=== PATIENT | female | born 1965 | race African-American/Black ===

== ENCOUNTER 2019-07-10 13:21 | Inpatient (IN) ==
[2019-07-10 16:03] LABS: BILIRUBIN URINE NEGATIVE (NEGATIVE); BLOOD URINE 1+ (NEGATIVE); CLARITY CLEAR (CLEAR); COLOR YELLOW; GLUCOSE URINE NEGATIVE (NEGATIVE); KETONE URINE TRACE mg/dL (NEGATIVE); LEUKOCYTES URINE TRACE (NEGATIVE); NITRITE URINE NEGATIVE (NEGATIVE); PROTEIN URINE NEGATIVE (NEGATIVE); UROBILINOGEN URINE NORMAL
[2019-07-10 16:10] LABS: URINE BACTERIA 3+ /HFP; URINE EPITHELIAL CELLS >10 /HPF (<10); URINE RBC <10 /HPF (<10); URINE SOURCE CLEAN CATCH; URINE WBC <10 /HPF (<10)
[2019-07-10 16:14] LABS: AGAP 10; ALBUMIN 4.4 g/dL (3.5-5.0); ALKALINE PHOSPHATASE 49 U/L (32-104); BUN 7 mg/dL (8-22); CALCIUM 9.5 mg/dL (8.8-10.2); CHLORIDE 104 mmol/L (98-107); COSMO 278; CREATININE 0.3 mg/dL (0.5-0.9); ESTIMATED GFR > 60; GLUCOSE 105 mg/dL (70-104); GOT 26 U/L (10-30); GPT 20 U/L (10-36); POTASSIUM 3.7 mmol/L (3.5-5.1); SODIUM 140 mmol/L (136-145); TCO2 26 mmol/L (25-35); TOTAL PROTEIN 7.8 g/dL (6.3-8.3)
[2019-07-10 16:27] LABS: BASO# 0.01 X1000 (0.0-0.2); BASO% 0.2 % (0.0-0.8); EOS# 0.04 X1000 (0.0-0.7); EOS% 0.8 % (0.0-10.0); HEMATOCRIT 37.6 % (37.0-47.0); HEMOGLOBIN 11.9 g/dL (12.0-16.0); IMM GRAN# 0.01 X1000 (0.0-0.04); IMM GRAN% 0.2 % (0.0-0.5); LYMPH# 3.17 X1000 (1.2-3.4); LYMPH% 65.2 % (20.5-51.1); MCH 26.5 PG (27-31); MCHC 31.6 g/dL (33-37); MCV 83.7 FL (81-99); MONO# 0.39 X1000 (0.11-0.59); NEUT# 1.24 X1000 (1.4-6.5); NEUT% 25.6 % (42.2-75.2); RBC 4.49 XMIL (4.2-5.4); RDW 15.7 % (11.5-14.5); WBC 4.86 X1000 (4.8-10.8)
[2019-07-10 16:29] LABS: PLT 7 X1000 (130-400)
[2019-07-10 16:36] LABS: INR 0.99; PROTIME 13.6 Seconds (11.0-16.0)
[2019-07-10 16:41] LABS: LYMPHS 60 % (21-51); MONO 4 % (1-9); SEGS 36 % (42-75)
[2019-07-10 16:44] LABS: ANISOCYTOSIS 1+; HYPOCHROM 2+; MICROCYTOSIS 1+; OVALOCYTES 2+; POIKILOCYTOSIS 2+
--- NOTE | 2019-07-10 17:09 | PROVIDER DOCUMENTATION ---
This chart was entered by Ruth Mathias Scribe, acting as scribe for Patricia Connolly MD. HPI-Female /OB/Breast - General Chief Complaint: Female Stated Complaint: BLOOD IN URINE Time Seen by Provider: 07/10/19 13:47 Source: reports: patient Allergies/Adverse Reactions: Patient Allergies Allergy/AdvReac Type Severity Reaction Status Date / Time No Known Allergies Allergy Verified 07/10/19 13:29 Home Medications: Home Medication List Medication Instructions Recorded Confirmed Last Taken Type Levothyroxine Sodium 50 mcg PO DAILY 06/24/17 07/10/19 07/10/19 10:00 History Lisinopril 30 mg PO DAILY 06/24/17 07/10/19 07/10/19 10:00 History Citalopram [Celexa] 20 mg PO DAILY 10/09/18 07/10/19 07/10/19 10:00 History Ondansetron HCl [Zofran] 4 mg PO Q4H PRN PRN #20 tab 11/13/18 07/10/19 Unknown Rx Hydroxyzine Pamoate [Vistaril] 25 mg PO Q4-6H PRN PRN #20 cap 12/12/18 07/10/19 07/10/19 10:00 Rx - History of Present Illness-Female /OB Nature of Presenting Problem: Patient is a 53 year old female who presents with lower abdominal pain. States hematuria, nausea, and chills with abdominal pain. Reports symptoms have been present for 2 days. States she was informed recently her platelet count is 36. Does patient report she is ?: No Location of complaint: reports: other (generalized lower) Radiation: reports: none Quality of Pain: reports: cramping Severity in ED: reports: mild Onset/Duration: reports: 2 days ago Timing: reports: still present Context/Activities at Onset: reports: light activity Urinary Symptoms: reports: hematuria Modifying Factors: improves with: nothing Associated Symptoms: reports: fever/chills (chills), nausea Similar Symptoms Previously?: Yes Recently seen or treated by another doctor?: Yes Review of Systems - Adult - REVIEW OF SYSTEMS - ADULT Constitutional: reports: see HPI, chills. denies: fever, fatique Eyes: reports: no symptoms reported Ears, Nose, Mouth & Throat: reports: no symptoms reported Cardiovascular: reports: no symptoms reported Respiratory: reports: no symptoms reported Gastrointestinal: reports: see HPI, abdominal pain (generalized lower), nausea. denies: diarrhea, vomiting Genitourinary: reports: see HPI, hematuria. denies: dysuria, flank pain Musculoskeletal: reports: no symptoms reported Integumentary: reports: no symptoms reported Neurological: reports: no symptoms reported Psychiatric: reports: no symptoms reported Endocrine: reports: no symptoms reported Hematologic/Lymphatic: reports: no symptoms reported Allergic/Immunologic: reports: no symptoms reported All Other Systems: Reviewed and Negative Past History - Adult - PAST MEDICAL HISTORY-ADULT Review of Records: reports: Old Records Reviewed, Social history reviewed & non- contributory. Major Childhood Illnesses: reports: denies history Cardiovascular: reports: HTN, hyperlipidemia Respiratory: reports: denies history Gastrointestinal: reports: denies history Obstetrical/Gynecological: reports: denies history Genitourinary: reports: denies history Musculoskeletal: reports: denies history Neurological: reports: Seizures/Epilepsy Psychiatric: reports: anxiety, depression Endocrine/Immune: reports: thyroid disorder Other Conditions: reports: denies history - PRIOR SURGERIES/PROCEDURES Surgical/Procedure History: reports: - IMMUNIZATION STATUS Childhood Immunizations: See Nurse Assessment Flu Vaccine: See Nurse Assessment - FAMILY HISTORY Family History: reviewed, not pertinent - SOCIAL HISTORY Smoking: cigarettes (former) Substance Use: denies Living Situation: family Physical Exam-General - PHYSICAL EXAM-ADULT Initial Vital Signs Reviewed: Yes - CONSTITUTIONAL General Appearance: alert, no apparent distress. negative: lethargic - HEAD, EARS, NOSE, MOUTH & THROAT HENMT: normocephalic/atraumatic, moist mucous membranes. negative: angioedema - RESPIRATORY Respiratory: chest non-tender, lungs clear, normal breath sounds. negative: crackles, rhonchi - CARDIOVASCULAR Cardiovascular: normal peripheral pulses, regular rate, rhythm. negative: tachycardia - GASTROINTESTINAL (ABDOMEN) Abdominal Exam: normal bowel sounds, soft, tenderness (suprapubic, LLQ and RLQ). negative: guarding, rigid - MUSCULOSKELETAL Extremity: non-tender, normal inspection. negative: deformity, erythema - SKIN Integumentary: normal color, normal turgor, warm/dry. negative: cyanosis, erythema, rash - NEUROLOGIC Neurologic: grossly normal. negative: aphasia, facial droop - PSYCHIATRIC Psych/Mental Status: normal mood/affect, oriented x 3. negative: anxious Progress - PLAN OF CARE/RESULTS Progress/Plan/Lab Results: Vital Signs - 8 hr 07/10/19 13:27 Temperature 98.0 F Pulse Rate 81 Respiratory Rate 18 Blood Pressure 127/78 O2 Sat by Pulse Oximetry 99 Laboratory Results - last 24 hr 07/10/19 07/10/19 07/10/19 15:35 15:50 15:50 WBC 4.86 RBC 4.49 Hgb 11.9 L Hct 37.6 MCV 83.7 MCH 26.5 L MCHC 31.6 L RDW Std Deviation 15.7 H Plt Count 7 L* MPV Not Reportable Immature Gran % (Auto) 0.2 Neut % (Auto) 25.6 L Lymph % (Auto) 65.2 H Maury % (Auto) 8.0 Eos % (Auto) 0.8 Baso % (Auto) 0.2 Immature Gran # (Auto) 0.01 Neut # (Auto) 1.24 L Lymph # (Auto) 3.17 Maury # (Auto) 0.39 Eos # (Auto) 0.04 Baso # (Auto) 0.01 Segmented Neutrophils 36 L Lymphocytes 60 H Monocytes 4 Hypochromia 2+ Large Platelets S[employer] Poikilocytosis 2+ Anisocytosis 1+ Microcytosis 1+ Ovalocytes 2+ PT INR PTT (Actin FS) Sodium 140 Potassium 3.7 Chloride 104 Carbon Dioxide 26 Anion Gap 10 BUN 7 L Creatinine 0.3 L Estimated GFR/1.73 m2 > 60 BUN/Creatinine Ratio 23 Glucose 105 H Calculated Osmolality 278 Calcium 9.5 Total Bilirubin 0.40 AST 26 ALT 20 Alkaline Phosphatase 49 Total Protein 7.8 Albumin 4.4 Globulin 3.0 Albumin/Globulin Ratio 1.0 Urine Source CLEAN CATCH Urine Color YELLOW Urine Clarity CLEAR Urine pH 5.0 Ur Specific Dalton 1.020 Urine Protein NEGATIVE Urine Ketones TRACE Urine Blood 1+ A Urine Nitrite NEGATIVE Urine Bilirubin NEGATIVE Urine Urobilinogen NORMAL Urine Microscopic RBC <10 Urine WBC TRACE A Urine Microscopic WBC <10 Ur Epithelial Cells >10 A Urine Bacteria 3+ Urine Glucose NEGATIVE 07/10/19 15:50 WBC RBC Hgb Hct MCV MCH MCHC RDW Std Deviation Plt Count MPV Immature Gran % (Auto) Neut % (Auto) Lymph % (Auto) Maury % (Auto) Eos % (Auto) Baso % (Auto) Immature Gran # (Auto) Neut # (Auto) Lymph # (Auto) Maury # (Auto) Eos # (Auto) Baso # (Auto) Segmented Neutrophils Lymphocytes Monocytes Hypochromia Large Platelets Poikilocytosis Anisocytosis Microcytosis Ovalocytes PT 13.6 INR 0.99 PTT (Actin FS) 26.0 Sodium Potassium Chloride Carbon Dioxide Anion Gap BUN Creatinine Estimated GFR/1.73 m2 BUN/Creatinine Ratio Glucose Calculated Osmolality Calcium Total Bilirubin AST ALT Alkaline Phosphatase Total Protein Albumin Globulin Albumin/Globulin Ratio Urine Source Urine Color Urine Clarity Urine pH Ur Specific Dalton Urine Protein Urine Ketones Urine Blood Urine Nitrite Urine Bilirubin Urine Urobilinogen Urine Microscopic RBC Urine WBC Urine Microscopic WBC Ur Epithelial Cells Urine Bacteria Urine Glucose Orders Category Date Time Status CT ABD/PELVIS W/IV CONT ONLY [CT] Stat Exams 07/10/19 13:48 Ordered CBC WITH ELECTRONIC DIFF [HEME] Stat Lab 07/10/19 15:50 Completed CMP [COMPREHENSIVE METABOLIC PANEL] [CHEM] Stat Lab 07/10/19 15:50 Completed PHERESIS PLATELETS [BBK] Stat Lab 07/10/19 15:50 Received PROTIME WITH INR [COAG] Stat Lab 07/10/19 15:50 Completed PTT [COAG] Stat Lab 07/10/19 15:50 Completed TYPE & SCREEN [BBK] Stat Lab 07/10/19 15:50 Received UA NIMS W/REFLEX CULT PL [URINALYSIS] Stat Lab 07/10/19 15:35 Completed URINE CULTURE [RM] Routine Lab 07/10/19 15:35 Received d/w Dr King, He will place the orders for platelet transfusion Result Diagrams: 07/10/19 15:50 07/10/19 15:50 - CONSULTS/PCP/HOSPITALIST Notification #1 *Consult/PCP/Hospitalist*: Dr King Time Discussed: 17:02 Consult Disposition: Will see in ED Departure - Departure Date of Disposition Decision: 07/10/19 Time of Disposition Decision: 17:06 DIAGNOSIS: Thrombocytopenia, Abdominal pain, Hematuria Disposition: ADMITTED INPATIENT 09 Certified Medical Emergency: Emergent Condition: Good Referrals and Follow-Ups: None,PCP [Primary Care Provider] - - Critical Care Note This patient required my direct & personal management of CC.: Yes Total Time (mins): 40 Critical Care Statement: This patient required my direct personal management to treat or rule out processes, the absence of which, could potentiallly result in sudden, clinically significant life or limb threatening deterioration. Attestation - Physician/ MUNA Attestation Patient care was provided by Advanced Practice Provider:: No The physician spent face to face time with patient:: Yes Advanced Practice Provider documentation review:: Supervising physician onsite and consulted in the evaluation and care of this patient. The physician did have a face to face encounter with the patient. This chart was documented by the indicated scribe, (Ruth Mathias Scribe) and accurately reflects the services I performed and decisions made by me, Patricia Connolly MD, as attested by the provider's signature.
[2019-07-10] MEDS ORDERED: TYLENOL PO PRN (18:30)
[2019-07-10] MEDS ORDERED: ZOFRAN IV PRN (18:30)
[2019-07-10] MEDS ORDERED: NS 500 ML IV ONE (18:31)
--- NOTE | 2019-07-10 19:04 | Diag Imaging Result Doc PS360 ---
EXAM: CT ABD/PELVIS W/IV CONT ONLY 07/10/2019 HISTORY: hematuria, abd pain 3 weeks TECHNIQUE: This exam was performed using automated exposure control, adjustment of mA or kV according to patient size, and/or use of iterative reconstruction technique. COMMENT: There are no previous studies available for comparison. There is no evidence of acute disease in the visualized portion of the chest. There is a heterogeneous but somewhat well-circumscribed lucent lesion posteriorly in the right hepatic lobe. Some peripheral enhancement probably nodes present suggesting that this is a cavernous hemangioma. The adrenal glands are not enlarged. The spleen and pancreas are within normal limits. There is no apparent cholelithiasis. The kidneys are without evidence of hydronephrosis or mass. There is no evidence of appendicitis. There is a vena cava filter. There is no evidence of bowel obstruction. There is retained gastric contents. Pelvis: There are calcified myometrial masses consistent with leiomyomata. There are some small ovarian cysts on the right the largest of which measures 13 mm in diameter. There is no evidence of free fluid. The urinary bladder is not distended. There is no evidence of significant adenopathy. There is a bone island in the left iliac bone just above the acetabulum. There are degenerative changes with vacuum phenomenon in the sacroiliac joint and facet arthropathy is seen bilaterally at L5-S1. No acute bony abnormalities are present. IMPRESSION: Probable hepatic hemangioma. Multiphase scanning is suggested for further evaluation if clinically indicated. Electronically signed by Benjie Moore 07/10/2019 7:02 PM
--- NOTE | 2019-07-10 21:45 | HISTORY AND PHYSICAL ---
CHIEF COMPLAINT: Bloody urine. HISTORY OF PRESENT ILLNESS: The patient is a 53-year-old female who presented to the hospital with blood in her urine. After discussion, she has also had blood on her toothbrush for the past several days after brushing her teeth. Denies any bleeding otherwise. Denies any chadwick bruising. The patient does have a history of thrombocytopenia. She was actually admitted to the hospital in March of 2018 with a platelet count of 6. It dropped to 2. She was transferred to [facility], where she stayed 7 days and was given transfusions. She denies any knowledge of the diagnosis. She was seen back in September as well as in March of this year with platelets in the 50 range. Currently her platelets are at 7. ALLERGIES: No known drug allergies. MEDICATIONS: Synthroid 50, lisinopril 30, Celexa 20, Vistaril 25. PAST MEDICAL HISTORY: Hypertension, hypothyroidism, depression. She has moderate spinal stenosis at L4-L5. SURGICAL HISTORY: She has had a . FAMILY HISTORY: Noncontributory. She denies any family history of thrombocytopenia. SOCIAL HISTORY: She lives at home. Does not smoke or drink. Denies any illicit substances. She does not have a primary care physician. I am unclear as to where she stated medication prescriptions are being written from. REVIEW OF SYSTEMS: As noted above. She does note that she has blood in her urine. She has had blood when she is brushing her teeth. Denies any blood in her stool. Denies any bleeding or bruising otherwise. Denies headaches, blurred vision, change in her vision. She has had frequent falls, but this is chronic. Denies any recent fractures. Denies any headaches, blurred vision, or change in her vision. She does have some abdominal pain. Denies constipation, melena, hematochezia. PHYSICAL EXAMINATION: VITAL SIGNS: Reviewed. She is currently afebrile. Blood pressure is stable, 130 systolic. Respiratory rate is 22. GENERAL: Patient is awake, alert. She is in no respiratory distress currently. HEENT: Normocephalic. NECK: Supple. CARDIOVASCULAR: Regular rate. CHEST: Clear. ABDOMEN: Soft, tender in the suprapubic left lower quadrant area. No guarding. No rebound. Positive bowel sounds. EXTREMITIES: Moves all extremities. No bruising. NEUROLOGIC: She is awake, alert, and oriented x3. ASSESSMENT: 1. Severe thrombocytopenia with a platelet count of 7. 2. Mild anemia. Hemoglobin and hematocrit 11.9, and 37. 3. Hypertension. 4. Hypothyroidism. 5. Chronic anxiety and depression. 6. Spinal stenosis, lumbar. PLAN: We are going to transfuse platelets. We will transfer her to [facility] for a hematology opinion. CT was reported to me is negative. I do not have radiology reports currently. cc: Tyler King MD
[2019-07-11 07:45] LABS: HEMATOCRIT 34.7 % (37.0-47.0); HEMOGLOBIN 10.9 g/dL (12.0-16.0); MCH 27.2 PG (27-31); MCHC 31.4 g/dL (33-37); MCV 86.5 FL (81-99); PLT 71 X1000 (130-400); RBC 4.01 XMIL (4.2-5.4); RDW 16.1 % (11.5-14.5); WBC 4.24 X1000 (4.8-10.8)
[2019-07-11 07:58] LABS: AGAP 11; ALB/GLOB RATIO 1.3; ALBUMIN 3.8 g/dL (3.5-5.0); ALKALINE PHOSPHATASE 47 U/L (32-104); BUN 9 mg/dL (8-22); CALCIUM 8.9 mg/dL (8.8-10.2); CHLORIDE 108 mmol/L (98-107); COSMO 285; CREATININE 0.3 mg/dL (0.5-0.9); ESTIMATED GFR > 60; GLUCOSE 92 mg/dL (70-104); GOT 25 U/L (10-30); GPT 18 U/L (10-36); SODIUM 144 mmol/L (136-145); TCO2 25 mmol/L (25-35); TOTAL BILIRUBIN 0.41 mg/dL (0.20-1.00); TOTAL PROTEIN 6.8 g/dL (6.3-8.3)
[2019-07-11] MEDS: CELEXA PO SCH (08:20)
[2019-07-11] MEDS: SYNTHROID PO SCH (08:20)
[2019-07-11] MEDS: COLACE PO SCH (11:50)
[2019-07-11] MEDS: DECADRON PO SCH (12:24)
--- NOTE | 2019-07-11 12:26 | HEMO/ONC CONSULTATION ---
DATE: 07/11/2019 REASON FOR CONSULTATION: This is a known patient of ours for the management of idiopathic thrombocytopenia purpura. HISTORY OF PRESENT ILLNESS: This is a 53-year-old female patient who presented to the ER with blood in her urine. She also describes blood on her toothbrush for the past several days after brushing her teeth. She denies bleeding anywhere else, and she denies any easy bruising, ecchymosis, or petechiae. The patient became a patient of ours last year after hospitalization for thrombocytopenia. We initially met this patient last April after being treated in [facility] for severe ITP. She was given transfusions at that time. In the clinic, she was given 1 cycle of Decadron with omeprazole, which brought her platelet count to 128,000. She did not return to the clinic for several months, until October of this year, and her platelet count was 111,000. She has again, not shown up in the clinic since then. She has been noncompliant with followup. In January, we were notified that the patient was living at the [facility]. The patients's PCP called stating the patient's platelet's were 35,000. She was scheduled for an appointment next week. The patient also has an LIZETH and SSA antibody positive, and was referred to Rheumatology. We are not sure if she followed up with those appointments. PAST MEDICAL HISTORY: Hypertension, hypothyroidism, depression, ITP, moderate spinal stenosis at L4, L5. PAST SURGICAL HISTORY: She has had a section. ALLERGIES: No known drug allergies. HOME MEDICATIONS: Synthroid, lisinopril, Celexa, and Restoril. SOCIAL HISTORY: She denies smoking, alcohol, or illicit drug use. FAMILY HISTORY: Denies history of thrombocytopenia, otherwise noncontributory. REVIEW OF SYSTEMS: Pertinent positives are noted in the HPI. Otherwise review of systems is negative. PHYSICAL EXAMINATION: Vital Signs: Temperature 98.5 degrees, pulse rate 75, respiratory rate 18, blood pressure 135/89, O2 saturation 100% on room air, she is in 0/10 pain. General: The patient is in no acute distress. HEENT: Sclerae anicteric. PERRLA. Oral mucosa is moist. Cardiovascular: Normal S1, S2. Heart rate and rhythm regular. Chest: Clear to auscultation. Abdomen: Soft, nondistended, tender in the left lower quadrant. Positive bowel sounds. Extremities: No ecchymosis or bruising noted. They appear atraumatic. Neurological: Awake, alert, and oriented. LABORATORY DATA: WBC 4.24, hemoglobin 10.9, hematocrit 34.7, platelet count yesterday 7000, today 71,000. ASSESSMENT: 1. Idiopathic thrombocytopenia purpura. 2. Normocytic anemia. PLAN: The patient is status post two platelet transfusions. Dr. Griffiths would like the patient started on Decadron 40 mg daily x4 days, along with Prilosec for treatment. Continue to transfuse the patient with platelets as needed for platelet count less than 20,000. We will continue to monitor closely. Dictated by CHRIS Roberson for Wei Griffiths MD cc: Wei Griffiths MD [facility]
--- NOTE | 2019-07-11 15:08 | PROGRESS NOTE ---
DATE: 07/11/2019 SUBJECTIVE: The patient is resting comfortably in bed. She received 2 units of platelets yesterday, and her platelet count is improved. OBJECTIVE: Vital Signs: Temperature 97.9 degrees, blood pressure 130/78, heart rate 75, respirations 18, and O2 saturation 94% on room air. General: This is a morbidly obese female lying in bed in no acute distress. Heart: S1, S2 normal. Regular rate and rhythm. Lungs: Equal air entry bilaterally. No wheezing. No rales. Abdomen: Positive bowel sounds. Soft, nontender, and nondistended. Extremities: No edema. No cyanosis. Neurologic: The patient is alert and oriented x3. LABORATORY: Platelet count 71,000, hemoglobin 10, hematocrit 34, platelets 133,000, and white blood cell count 4.3. ASSESSMENT AND PLAN: 1. ITP. The patient has been started on steroid therapy by Dr. Griffiths. We will monitor the platelet count closely. 2. Hypothyroidism. Continue on Synthroid. 3. Obesity. Aware. cc: Annette Donovan MD MTDD
[2019-07-12] MEDS: PRILOSEC PO SCH (05:59)
[2019-07-12] MEDS: SYNTHROID PO SCH (05:59)
[2019-07-12 08:20] LABS: AGAP 13; BUN 14 mg/dL (8-22); CALCIUM 9.3 mg/dL (8.8-10.2); CHLORIDE 105 mmol/L (98-107); COSMO 279; CREATININE 0.3 mg/dL (0.5-0.9); ESTIMATED GFR > 60; GLUCOSE 150 mg/dL (70-104); POTASSIUM 3.8 mmol/L (3.5-5.1); SODIUM 138 mmol/L (136-145); TCO2 20 mmol/L (25-35)
[2019-07-12 08:46] LABS: LYMPH# 1.79 X1000 (1.2-3.4); LYMPH% 51.9 % (20.5-51.1); MONO# 0.09 X1000 (0.11-0.59); MONO% 2.6 % (1.7-9.3); NEUT# 1.57 X1000 (1.4-6.5); NEUT% 45.5 % (42.2-75.2)
[2019-07-12 08:47] LABS: HEMATOCRIT 34.7 % (37.0-47.0); HEMOGLOBIN 11.1 g/dL (12.0-16.0); MCH 26.4 PG (27-31); MCV 82.6 FL (81-99); RDW 15.6 % (11.5-14.5); WBC 3.45 X1000 (4.8-10.8)
[2019-07-12] MEDS: CELEXA PO SCH (08:48)
[2019-07-12] MEDS: COLACE PO SCH (08:48)
[2019-07-12 08:51] LABS: PLT 36 X1000 (130-400)
[2019-07-12] MEDS: ROCEPHIN 1 GM in NS 50 ML IV SCH (09:02)
[2019-07-12 09:04] LABS: LYMPHS 54 % (21-51); SEGS 46 % (42-75)
[2019-07-12] MEDS: DECADRON PO SCH (12:20)
--- NOTE | 2019-07-12 15:09 | PROGRESS NOTE ---
DATE: 07/12/2019 SUBJECTIVE: The patient is resting comfortably in bed. She has no complaints at this time. OBJECTIVE: Vital Signs: Temperature 97.8 degrees, blood pressure 134/80, heart rate 84, respirations 18, O2 saturations 100% on room air. General: This is an elderly female, lying in bed in no acute distress. Heart: S1, S2 normal. Regular rate and rhythm. Lungs: Clear to auscultation bilaterally. No wheezing. No rales. No rhonchi. Abdomen: Positive bowel sounds. Soft, nontender, nondistended. Extremities: No edema. No cyanosis. Neurologic: The patient is alert and oriented x4. LABORATORY DATA: White blood cell count 3.4, hemoglobin 11, hematocrit 34, platelets 36,000. BUN 14, creatinine 0.3. Urine culture shows Escherichia coli. ASSESSMENT AND PLAN: 1. Idiopathic thrombocytopenic purpura. The patient is currently on steroid therapy. Will continue to monitor the platelet count closely for improvement. Further management as per Dr. Griffiths. 2. Urinary tract infection secondary to Escherichia coli. The patient is on Rocephin. 3. Obesity. The patient has been counseled about weight loss. 4. Anemia. Stable. cc: Annette Donovan MD MTDD
--- NOTE | 2019-07-12 16:42 | HEMO/ONC PROGRESS NOTE ---
DATE: 07/12/2019 SUBJECTIVE: The patient is sitting up this morning, eating breakfast. She states that she does have a good appetite. She is feeling well. She states there is a slight amount of blood still in her urine, but her gums are not bleeding anymore. She has no complaints today. OBJECTIVE: Vital signs: Temperature 97.6 degrees, pulse rate 76, respiratory rate 18, blood pressure 142/92, O2 saturation 100% on room air. She is in 0/10 pain. General: The patient is in no acute distress. HEENT: Sclera is anicteric. PERRLA. Oral mucosa is moist. Cardiovascular: Normal S1, S2. Heart rate and rhythm are regular. Respiratory: Chest is clearn to auscultation. Normal respiratory effort. Abdomen: Soft, nondistended, nontender. Positive bowel sounds. Extremities: No ecchymosis or bruising noted. They appear atraumatic. No edema noted. Neurological: Awake, alert, oriented x3. LABORATORY: WBC 3.45, hemoglobin 11.1, hematocrit 34.7, and platelet count 36,000. ASSESSMENT: 1. Idiopathic thrombocytopenia purpura. 2. Normocytic anemia. PLAN: The patient should continue on day 2 of 4 days of Decadron 40 mg daily along with Prilosec. Continue transfusion for a platelet count less than 20,000 or bleeding. We will continue to monitor her closely. Dictated by CHRIS Roberson for Wei Griffiths MD cc: Wei Griffiths MD [facility]
[2019-07-13] MEDS: SYNTHROID PO SCH (06:34)
[2019-07-13] MEDS: PRILOSEC PO SCH (06:34)
[2019-07-13] MEDS: ROCEPHIN 1 GM in NS 50 ML IV SCH (06:34)
[2019-07-13 07:36] LABS: HEMATOCRIT 32.7 % (37.0-47.0); HEMOGLOBIN 10.8 g/dL (12.0-16.0); LYMPH# 2.02 X1000 (1.2-3.4); LYMPH% 44.7 % (20.5-51.1); MCH 27.3 PG (27-31); MCV 82.8 FL (81-99); MONO# 0.16 X1000 (0.11-0.59); MONO% 3.5 % (1.7-9.3); NEUT# 2.34 X1000 (1.4-6.5); NEUT% 51.8 % (42.2-75.2); PLT 18 X1000 (130-400); RBC 3.95 XMIL (4.2-5.4); RDW 15.6 % (11.5-14.5); WBC 4.52 X1000 (4.8-10.8)
[2019-07-13 07:51] LABS: AGAP 15; BUN 13 mg/dL (8-22); CALCIUM 9.4 mg/dL (8.8-10.2); CHLORIDE 104 mmol/L (98-107); COSMO 282; CREATININE 0.3 mg/dL (0.5-0.9); ESTIMATED GFR > 60; GLUCOSE 138 mg/dL (70-104); POTASSIUM 4.2 mmol/L (3.5-5.1); SODIUM 140 mmol/L (136-145); TCO2 21 mmol/L (25-35)
[2019-07-13] MEDS ORDERED: TYLENOL PO ONE (07:59)
[2019-07-13] MEDS ORDERED: BENADRYL PO ONE (07:59)
[2019-07-13] MEDS ORDERED: IVIG DOSING ORDER MISC SCH ×2 (08:00→08:16)
[2019-07-13 08:41] LABS: ANISOCYTOSIS 1+; LYMPHS 46 % (21-51); MONO 2 % (1-9); SEGS 51 % (42-75)
[2019-07-13 08:42] LABS: LARGE PLATELETS OCCASIONAL; MICROCYTOSIS 1+
[2019-07-13] MEDS ORDERED: GAMUNEX C IV ONE (09:00)
[2019-07-13] MEDS ORDERED: DILUENT IV ONE (09:00)
[2019-07-13] MEDS: DECADRON PO SCH (10:21)
[2019-07-13] MEDS: CELEXA PO SCH (10:21)
[2019-07-13] MEDS: COLACE PO SCH (10:22)
[2019-07-13] MEDS ORDERED: NS 250 ML ONE (11:07)
--- NOTE | 2019-07-13 15:12 | PROGRESS NOTE ---
DATE: 07/13/2019 SUBJECTIVE: The patient states that she feels weak this morning. Also, her platelet count has dropped again today. OBJECTIVE: Vital Signs: Temperature 97.5 degrees, blood pressure 160/84, heart rate 65, respirations 19, O2 saturations 100% on room air. General: This is an overweight female lying in bed in no acute distress. Heart: S1, S2 normal. Regular rate and rhythm. Lungs: Clear to auscultation bilaterally. No wheezing. No rales. No rhonchi. Abdomen: Positive bowel sounds. Soft, nontender, nondistended. Extremities: No edema, no cyanosis. Neurologic: The patient is alert and oriented x3. LABS: White blood cell count 4.5, hemoglobin 10, hematocrit 32, platelets 18,000. Sodium 140, potassium 4.2, chloride 104, CO2 21, BUN 13, creatinine 0.3, glucose 138. ASSESSMENT AND PLAN: 1. ITP. The patient's platelet count continues to drop despite receiving steroid therapy. The patient has been started on immunoglobulin therapy. 2. Hypothyroidism. Continue on Synthroid. 3. Hypertension. We will start the patient on Norvasc. 4. Obesity. Aware. 5. Situational depression. Continue on Celexa. cc: Annette Donovan MD
--- NOTE | 2019-07-13 19:40 | HEMO/ONC PROGRESS NOTE ---
DATE: 07/13/2019 SUBJECTIVE: The patient is resting in bed this morning. She has not yet received her breakfast. She states that she feels relatively well, except her arms and legs feel weak. She states this is a normal feeling for her, and that she utilizes a walker or cane for ambulation. She states her urine still has a little bit of blood in it. Her gums are not bleeding. She denies any specific complaints today. OBJECTIVE: Vital Signs: Temperature 98.3, pulse rate 70, respiratory rate 19, blood pressure 161/90, O2 saturation 98% on room air. She is in 0/10 pain. General: The patient is in no acute distress. She is obese with a BMI of 34.8. HEENT: Sclerae are anicteric. PERRLA. Oral mucosa is moist. Cardiovascular: Normal S1, S2. Heart rate and rhythm regular. Respiratory: Lungs are clear to auscultation. Normal respiratory effort. Gastrointestinal: Abdomen is soft, nontender, nondistended. Positive bowel sounds. Extremities: No edema noted. Neurological: She is awake, alert, oriented x3. No focal motor deficits noted. LABORATORY: WBCs 4.52, hemoglobin 10.8, hematocrit 32.7, platelet count 18,000. ANC 2.34. ASSESSMENT: 1. Suspected idiopathic thrombocytopenia purpura. 2. Normocytic anemia. PLAN: Patient should continue her daily dose of high-dose steroids along with Prilosec. The patient will need a transfusion for platelet count less than 10,000 or if bleeding. We will continue to monitor her platelets very closely over the weekend. She is currently getting IVIG per Dr. Griffiths's orders. Dictated by CHRIS Roberson for Wei Griffiths MD cc: MD YUE James
[2019-07-13] MEDS: NORVASC PO SCH (20:58)
[2019-07-14] MEDS: PRILOSEC PO SCH (06:33)
[2019-07-14] MEDS: ROCEPHIN 1 GM in NS 50 ML IV SCH (06:34)
[2019-07-14] MEDS: SYNTHROID PO SCH (06:34)
[2019-07-14 08:23] LABS: HEMATOCRIT 30.5 % (37.0-47.0); HEMOGLOBIN 9.7 g/dL (12.0-16.0); LYMPH# 2.18 X1000 (1.2-3.4); LYMPH% 47.3 % (20.5-51.1); MCH 26.8 PG (27-31); MCHC 31.8 g/dL (33-37); MCV 84.3 FL (81-99); MONO# 0.28 X1000 (0.11-0.59); MONO% 6.1 % (1.7-9.3); NEUT# 2.15 X1000 (1.4-6.5); NEUT% 46.6 % (42.2-75.2); PLT 51 X1000 (130-400); RBC 3.62 XMIL (4.2-5.4); RDW 15.9 % (11.5-14.5); WBC 4.61 X1000 (4.8-10.8)
[2019-07-14 08:34] LABS: HEMOGLOBIN A1C 5.2 % (4.8-6.0)
[2019-07-14 08:46] LABS: AGAP 10; BUN 14 mg/dL (8-22); CALCIUM 8.4 mg/dL (8.8-10.2); CHLORIDE 104 mmol/L (98-107); COSMO 273; GLUCOSE 101 mg/dL (70-104); POTASSIUM 3.9 mmol/L (3.5-5.1); SODIUM 136 mmol/L (136-145); TCO2 22 mmol/L (25-35)
[2019-07-14] MEDS ORDERED: IVIG DOSING ORDER MISC SCH (09:00)
[2019-07-14] MEDS ORDERED: GAMUNEX C IV ONE (09:00)
[2019-07-14] MEDS ORDERED: DILUENT IV ONE (09:00)
[2019-07-14 09:14] LABS: CREATININE 0.3 mg/dL (0.5-0.9); ESTIMATED GFR > 60
[2019-07-14] MEDS: COLACE PO SCH (10:12)
[2019-07-14] MEDS: NORVASC PO SCH ×2 (10:12→19:59)
[2019-07-14] MEDS: CELEXA PO SCH (10:12)
[2019-07-14] MEDS: DECADRON PO SCH (10:13)
[2019-07-14 10:20] LABS: ANISOCYTOSIS 1+; LYMPHS 47 % (21-51); MICROCYTOSIS 1+; MONO 7 % (1-9); SEGS 46 % (42-75)
--- NOTE | 2019-07-14 17:25 | PROGRESS NOTE ---
DATE: 07/14/2019 SUBJECTIVE: The patient is sitting up in bed. She states that she feels better today. OBJECTIVE: Vital Signs: Temperature 98 degrees, blood pressure 132/69, heart rate 55, respirations 18, O2 saturation 97% on room air. General: This is an overweight female sitting in bed in no acute distress. Heart: S1, S2 normal. Bradycardic. Lungs: Clear to auscultation bilaterally. Abdomen: Positive bowel sounds. Soft, nontender, nondistended. Extremities: No edema, no cyanosis. Neurologic: The patient is alert and oriented x3. LABORATORY DATA: White blood cell count 4.6, hemoglobin 9.7, hematocrit 30, platelets 51. Sodium 136, potassium 3.9, chloride 104, CO2 22. BUN 14, creatinine 0.3. ASSESSMENT AND PLAN: 1. Idiopathic thrombocytopenic purpura. Continue with the treatment as directed by Dr. Griffiths. 2. Hypothyroidism. Continue on Synthroid. 3. Hypertension. Controlled. Continue on Norvasc. 4. Obesity. Aware. 5. Situational depression. Continue on Celexa. cc: Annette Donovan MD
[2019-07-15] MEDS: SYNTHROID PO SCH (06:02)
[2019-07-15] MEDS: PRILOSEC PO SCH (06:02)
[2019-07-15 07:48] LABS: EOS# 0.02 X1000 (0.0-0.7); EOS% 0.4 % (0.0-10.0); HEMATOCRIT 31.2 % (37.0-47.0); HEMOGLOBIN 9.7 g/dL (12.0-16.0); IMM GRAN# 0.02 X1000 (0.0-0.04); IMM GRAN% 0.4 % (0.0-0.5); LYMPH# 2.09 X1000 (1.2-3.4); LYMPH% 45.8 % (20.5-51.1); MCH 26.7 PG (27-31); MCHC 31.1 g/dL (33-37); MONO# 0.39 X1000 (0.11-0.59); MONO% 8.6 % (1.7-9.3); MPV 11.7 FL (7.4-10.4); NEUT# 2.04 X1000 (1.4-6.5); NEUT% 44.8 % (42.2-75.2); PLT 76 X1000 (130-400); RBC 3.63 XMIL (4.2-5.4); RDW 15.9 % (11.5-14.5); WBC 4.56 X1000 (4.8-10.8)
[2019-07-15] MEDS: ROCEPHIN 1 GM in NS 50 ML IV SCH (09:30)
[2019-07-15] MEDS: CELEXA PO SCH (09:31)
[2019-07-15] MEDS: COLACE PO SCH (09:31)
[2019-07-15] MEDS: NORVASC PO SCH ×2 (09:31→20:52)
--- NOTE | 2019-07-15 11:31 | PROGRESS NOTE ---
DATE: 07/15/2019 SUBJECTIVE: The patient is resting comfortably in bed. She has no complaints. OBJECTIVE: Vital Signs: Temperature 97.9 degrees, blood pressure 135/89, heart rate 60, respirations 18, O2 saturation is 100% on room air. General: This is an elderly female, lying in bed in no acute distress. Heart: S1, S2 normal. Regular rate and rhythm. Lungs: Equal air entry bilaterally. No wheezing. No rales. No rhonchi. Abdomen: Positive bowel sounds. Soft, nontender, nondistended. Extremities: No edema, no cyanosis. Neurologic: The patient is alert and oriented x3. Labs: White blood cell count 4.5, hemoglobin 9.7, hematocrit 31, platelets 76,000. ASSESSMENT AND PLAN: 1. Idiopathic thrombocytopenic purpura. Imoproved. Continue with the treatment as directed by Dr. Griffiths. 2. Anemia. Stable. 3. Hypothyroidism. Continue on Synthroid. 4. Hypertension. Continue on Norvasc. We will also consult with the dietitian tomorrow. 5. Obesity. Aware. 6. Situational depression. Continue on Celexa. cc: Annette Donovan MD MTDD
--- NOTE | 2019-07-15 13:10 | HEMO/ONC PROGRESS NOTE ---
DATE: 07/15/2019 SUBJECTIVE: Ms. Calderon is resting comfortably in bed. She denies any complaints. She denies any pain. She states that she remains weak with fatigue. She denies any clinical signs and symptoms of bleeding. OBJECTIVE: Vital signs: Temperature 98.3 degrees, pulse rate 65, respiratory rate 16, blood pressure 110/61, O2 saturation 98% on room air. She is in 0/10 pain. General: A female who is in no acute distress. HEENT: Sclerae is anicteric. PERRLA. Oral mucosa is moist. Cardiovascular: Normal S1, S2. Heart rate and rhythm regular. Respiratory: Lung sounds are clear to auscultation. Normal respiratory effort. Gastrointestinal: Abdomen is soft, nondistended, nontender. Positive bowel sounds. Extremities: No edema is noted. Neurological: Awake, alert, oriented x3. No deficits noted. LABORATORY DATA: WBC 4.56, hemoglobin 9.7, hematocrit 31.2, platelet count 76,000. ASSESSMENT: 1. Idiopathic thrombocytopenia purpura. 2. Normocytic anemia. PLAN: The patient is continuing with daily doses of steroids along with Prilosec. It is noted that her platelet count is beginning to improve, today it is at 76,000. We will continue to monitor very closely. She will need a platelet transfusion for platelet count of less than 10,000 or if she is bleeding. She is also currently receiving IVIG to assist with her platelets. We will start her on oral iron for anemia. We will continue to monitor closely. Dictated by CHRIS Roberson for Wei Griffiths MD cc: Wei Griffiths MD [facility] [place]
[2019-07-16] MEDS: PRILOSEC PO SCH (05:59)
[2019-07-16] MEDS: SYNTHROID PO SCH (05:59)
[2019-07-16 07:25] LABS: RETIC% 1.81 % (0.8-2.1)
[2019-07-16 07:34] LABS: AGAP 9; BUN 17 mg/dL (8-22); CALCIUM 8.3 mg/dL (8.8-10.2); CHLORIDE 103 mmol/L (98-107); COSMO 272; CREATININE 0.3 mg/dL (0.5-0.9); ESTIMATED GFR > 60; GLUCOSE 78 mg/dL (70-104); SODIUM 136 mmol/L (136-145); TCO2 24 mmol/L (25-35)
[2019-07-16 07:37] LABS: IRON SATURATION 76 %; TIBC 191 ug/dL; TOTAL IRON 146 ug/dL (49-151); UNBOUND IRON 45 ug/dL (112-346)
[2019-07-16 07:55] LABS: FERRITIN 306 ng/mL (13-150)
[2019-07-16 08:22] LABS: BASO# 0.01 X1000 (0.0-0.2); BASO% 0.1 % (0.0-0.8); EOS# 0.01 X1000 (0.0-0.7); EOS% 0.1 % (0.0-10.0); HEMATOCRIT 32.7 % (37.0-47.0); HEMOGLOBIN 10.4 g/dL (12.0-16.0); IMM GRAN# 0.05 X1000 (0.0-0.04); IMM GRAN% 0.5 % (0.0-0.5); LYMPH# 7.66 X1000 (1.2-3.4); LYMPH% 71.6 % (20.5-51.1); MCH 27.4 PG (27-31); MCHC 31.8 g/dL (33-37); MCV 86.1 FL (81-99); MONO# 0.98 X1000 (0.11-0.59); MONO% 9.2 % (1.7-9.3); MPV 11.2 FL (7.4-10.4); NEUT# 1.99 X1000 (1.4-6.5); NEUT% 18.5 % (42.2-75.2); PLT 125 X1000 (130-400)
[2019-07-16] MEDS: ROCEPHIN 1 GM in NS 50 ML IV SCH (10:30)
[2019-07-16] MEDS: COLACE PO SCH (10:31)
[2019-07-16] MEDS: NORVASC PO SCH (10:31)
[2019-07-16] MEDS: CELEXA PO SCH (10:31)
--- NOTE | 2019-07-16 13:08 | HEMO/ONC PROGRESS NOTE ---
DATE: 07/16/2019 SUBJECTIVE: Ms. Calderon is comfortable this morning. She denies any complaints or any pain. She denies any clinical signs and symptoms of bleeding. Her platelets have improved. She is ready to go home. OBJECTIVE: Vital Signs: Temperature 98.4 degrees, pulse rate 61, respiratory rate 16, blood pressure 125/82, O2 saturation 99% on room air. She is in 0/10 pain. Physical Examination: General: This patient is in no acute distress. HEENT: Sclerae are anicteric. PERRLA. Oral mucosa is moist. Cardiovascular: Normal S1, S2. Heart rate and rhythm are regular. Respiratory: Normal respiratory effort. Lung sounds are clear to auscultation. Gastrointestinal: Abdomen is soft, nondistended, nontender. Positive bowel sounds. Extremities: No edema is noted. Neurological: Awake, alert, and oriented x3. No focal motor deficits noted. Laboratory: WBCs 10.7, hemoglobin 10.4, hematocrit 32.7, platelet count 125,000, reticulocyte count 0.81. Iron 146, iron percent saturation 76, ferritin 306, vitamin B12 of 536, folate 4.4. ASSESSMENT: 1. Idiopathic thrombocytopenia purpura. 2. Normocytic anemia. PLAN: Continue patient on steroids and Prilosec. Her platelet count is improving nicely. Today, it is at 125,000. This patient is okay to be discharged from our standpoint. We will follow up with her outpatient. We are going to add folic acid to her medications. Please send her home with a prescription for folic acid. The patient's anemia profile was adequate. We will continue to monitor. Dictated by CHRIS Roberson for Wei Griffiths MD cc: Wei Griffiths MD
[2019-07-16] MEDS ORDERED: FOLIC ACID PO ONE (13:17)
[2019-07-16 16:28] VITALS: BP 106/62
--- NOTE | 2019-07-20 05:06 | DISCHARGE SUMMARY ---
ADMISSION DATE: 07/10/2019 DISCHARGE DATE: 07/16/2019 FINAL DISCHARGE DIAGNOSES: 1. Immune thrombocytopenic purpura. 2. Morbid obesity. 3. Urinary tract infection secondary to Escherichia coli. 4. Hypothyroidism. 5. Anemia. 6. Hypertension. 7. Situational depression. CONSULTATIONS: Hematology consultation with Dr. Griffiths. HOSPITAL COURSE: Ms. Calderon is a 53-year-old female with a history of hypertension, hypothyroidism, and obesity who presented to the ER with recurrent bleeding from the gums and generalized weakness. On admission, the patient was noted to have a platelet count of 7000. The patient was admitted to the hospitalist service, and Dr. Griffiths was consulted. 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 She was started on a course of IV steroid therapy. However, the patient's platelet count dropped despite receiving platelet transfusions so immunoglobulin therapy was initiated along with the steroids. The patient's platelet count improved after completion of the immunoglobulin therapy. The patient was also noted to have a urinary tract infection which ultimately grew out Escherichia coli. The patient was treated with Rocephin. The patient's platelet count continued to improve following treatment. On the day of discharge, the patient was noted to have a platelet count of 125,000. The patient was also noted to have a low folate and was started on folic acid replacement. The patient was ultimately cleared for discharge home on 07/16/2019. DISCHARGE MEDICATIONS: 1. Lactobacillus 1 tab oral daily. 2. Keflex 500 mg oral twice a day x4 days. 3. Synthroid 50 mcg oral daily. 4. Lisinopril 30 mg oral daily. 5. Celexa 20 mg p.o. daily. DISCHARGE DIET: Low-sodium diet. ACTIVITY: As tolerated. FOLLOWUP INSTRUCTIONS: The patient will need to follow up with Dr. Griffiths as scheduled by his clinic. cc: Annette Donovan MD MTDD
== END 2019-07-16 17:48 | disposition home or self-care (01) | DRG 813 ==
LOC: P.ED 13:21 → SUATTDRO 20:56 → 3N 20:56
PROVIDERS: ATTEND Internal Medicine